=== PATIENT | male | born 1935 | race Caucasian/White ===

== ENCOUNTER 2016-03-24 16:52 | Emergency (ER) | payer MEDICARE, OTHER ==
[~2016-03-24] VITALS: Ht 185.4 cm; Wt 104.3 kg
[~2016-03-24 16:52] MED LIST: ARICEPT10 M1 PO; ASPIR-TRIN325 MG PO; ASPIRIN325 M2 PO; ATENOLOL100 M1 PO; DIPYRIDAMOLE50 MG PO; DONEPEZIL HYDRO10 M1 PO; FOSINOPRIL SODI40 MG PO; FOSINOPRIL40 MG PO; GLIPIZIDE5 M1 PO; GLUCOTROL5 MG PO; HYDR25T PO; NOVOLIN 70100 UNIT/1 SQ; NOVOLIN R100 U/ML SC; OLEPTRO ER150 MG PO; PERSANTINE50 MG PO; TENORMIN100 MG PO; ZOCOR40 MG PO
[2016-03-24 17:41] LABS: BASO % 0.2 % (0.0-1.0); EOS # 0.3 10*3/uL (0.0-0.4); EOS % 2.1 % (1.0-4.0); HEMATOCRIT 33.5 % (42.0-52.0); HEMOGLOBIN 10.9 g/dl (14.0-18.0); LYMPH # 1.3 10*3/uL (1.3-4.4); LYMPH % 10.4 % (27.0-41.0); MEAN CELL VOLUME 94.1 fl (80.0-94.0); MEAN CORPUSCULAR HGB 30.6 pg (27.0-31.0); MEAN CORPUSCULAR HGB CONC 32.5 g/dl (33.0-37.0); MEAN PLATELET VOLUME 9.7 fl (9.6-12.3); MONO # 1.2 10*3/uL (0.1-1.0); MONO % 9.7 % (3.0-9.0); NEUT # 9.3 10*3/uL (2.3-7.9); NEUT % 77.3 % (47.0-73.0); PLATELET COUNT AUTOMATED 157 10*3/uL (130-400); RED BLOOD COUNT 3.56 10*6/uL (4.50-5.90); RED CELL DISTRI WIDTH 12.2 % (0-14.5); WHITE BLOOD COUNT 12.1 10*3/uL (4.8-10.8)
[2016-03-24 17:57] LABS: POTASSIUM 4.8 mmol/L (3.5-5.1)
[2016-03-24] MEDS ORDERED: DELTASONE20 M1 PO (18:20)
[2016-03-24] MEDS ORDERED: ZITHROMAX250 MG PO (18:20)
== END 2016-03-24 18:32 | disposition home or self-care (01) ==
LOC: ED 16:52
PROVIDERS: Emergency Medicine
DX: J40 Bronchitis, not specified as acute or chronic (principal); E10.649 Type 1 diabetes mellitus with hypoglycemia without coma; Z88.0 Allergy status to penicillin; Z79.82 Long term (current) use of aspirin; Z79.899 Other long term (current) drug therapy

== ENCOUNTER 2017-02-17 13:26 | Inpatient (IN) | payer MEDICARE, OTHER ==
[~2017-02-17] VITALS: Ht 185.4 cm; Wt 98.0 kg
--- NOTE | ~2017-02-17 | CON ---
[place], [place] REPORT OF CONSULTATION NAME: ANGÉLICA GARDUNO UNIT #: [id number] ROOM: 422 DOCTOR: DARIUS HUANG MD BIRTHDATE: [birth year] DOS: ATTESTATION Again, this is attestation on Dr. Jose Maria Kasper's note. DARIUS HUANG MD CM:CONSTR:REPORT OF CONSULTATION 1011 02/25/17 1306 interface
--- NOTE | ~2017-02-17 | PR ---
[place], [place] PROGRESS NOTE NAME: ANGÉLICA GARDUNO UNIT #: [id number] ROOM: 422 DOCTOR: SAI AUSTIN MD BIRTHDATE: [birth year] DOS: 02/20/2017 REASON FOR VISIT: Atrial fibrillation and CAD. HISTORY OF PRESENT ILLNESS: The patient denies any chest pain or shortness of breath. He is feeling better. No PND, no orthopnea. No fever or chills. No nausea, vomiting, or diarrhea. RHYTHM STRIPS: Patient was in atrial flutter versus sinus rhythm. PHYSICAL EXAMINATION: VITAL SIGNS: Blood pressure 158/89, pulse 92, respirations 16. GENERAL: Alert, comfortable, in no acute distress. HEENT: Pupils are round and equal. No jaundice. NECK: Supple. No distended neck veins, no carotid bruit. CHEST: Symmetrical, nontender. LUNGS: Clear to auscultation. HEART: Mostly regular. No S3. Grade 1/6 systolic murmur. ABDOMEN: Benign, nontender. Bowel sounds normal. EXTREMITIES: Showed no edema. Distal pulses are palpable. IMPRESSION: 1. New onset atrial fibrillation, on Coumadin. 2. Coronary artery disease. 3. Hypertension. 4. Anemia. RECOMMENDATIONS: 1. Continue current medications. 2. Lexiscan stress today to rule out ischemia due to known coronary artery disease. 3. Possible discharge in the next 24 hours. 4. We will review 2D echo for LV function and valvular function. [facility]. [facility]. [place], [place] PROGRESS NOTE NAME: ANGÉLICA GARDUNO UNIT #: [id number] ROOM: 422 DOCTOR: SAI AUSTIN MD BIRTHDATE: [birth year] SAI AUSTIN MD CM:PNTRANS 0 SAI AUSTIN MD 02/22/17121 interface
--- NOTE | ~2017-02-17 | ST ---
[place], [place] EXERCISE STRESS TEST REPORT [id number] UNIT #: [id number] ROOM: 422 DOCTOR: GEOVANNA TEMPLETON,SAI BIRTHDATE: [birth year] DOS: 02/20/2017 LEXISCAN STRESS TEST REASON FOR TEST: Atrial fibrillation, coronary artery disease. PHYSICAL EXAMINATION NECK: Supple. LUNGS: Clear anteriorly. HEART: Slightly irregular. PROTOCOL: Lexiscan protocol. Maximum heart rate 100, peak blood pressure 130/50, Symptoms, patient is chest pain free. ELECTROCARDIOGRAM: Resting EKG, sinus rhythm with intermittent atrial fibrillation. Stress EKG showed no ischemia. CONCLUSION: Clinically, patient is chest pain free. EKG, no ischemia compared to baseline. POST-STRESS COMPLICATIONS: None. Patient received a total of 0.4 mg Lexiscan. SAI AUSTIN MD CM:STRESS:EXERCISE STRESS TEST REPORT [id number] SAI AUSTIN MD
--- NOTE | ~2017-02-17 | PR ---
[place], [place] PROGRESS NOTE NAME: EMILY GARDUNON UNIT #: [id number] ROOM: 422 DOCTOR: SAI AUSTIN MD BIRTHDATE: [birth year] DOS: 02/20/2017 REASON FOR VISIT: Atrial fibrillation and CAD. SUBJECTIVE: The patient is feeling better. Denies any chest pain, shortness of breath. No palpitation. No dizziness. No orthopnea. No fever and chills. REVIEW OF SYSTEMS: Review of the 8 systems negative except as mentioned above. RHYTHM STRIPS: The patient was in sinus rhythm. OBJECTIVE: VITAL SIGNS: Blood pressure 101/62, pulse 58, respiration 16. GENERAL: Alert, comfortable, in no acute distress. HEAD AND NECK: Supple. No distended neck veins. No carotid bruit. CHEST: Symmetrical, nontender. LUNGS: Clear to auscultation bilaterally. HEART: Regular rhythm. No S3. Grade 1/6 murmur. ABDOMEN: Benign, nontender. Bowel sounds normal. EXTREMITIES: No edema. Distal pulses palpable. SKIN: Warm and dry. No cyanosis. No clubbing. NEUROLOGIC: The patient is alert, oriented. No focal neurologic deficit. MEDICATIONS AND ALLERGIES: Reviewed. IMPRESSION: 1. New onset atrial fibrillation with CHADS2-VASc score of 3. 2. Coronary artery disease, status post percutaneous coronary intervention. 3. Hypertension. 4. Anemia. RECOMMENDATIONS: Continue current medications. Continue to monitor the heart rate, blood pressure and hemoglobin. Lexiscan stress test tomorrow to rule out ischemia due to his known coronary artery disease. If he is clinically stable, stress test is unremarkable, discharge in next 24-48 hours. He was on Coumadin and he will follow up with [facility] for his protime monitoring in the future. There was no family at bedside at the time of my examination. [place], [place] PROGRESS NOTE NAME: ANGÉLICA GARDUNO UNIT #: [id number] ROOM: 422 DOCTOR: SAI AUSTIN MD BIRTHDATE: [birth year] SAI AUSTIN MD CM:ABA [id number] SAI AUSTIN MD 02/20/17 1639 interface
--- NOTE | ~2017-02-17 | CON ---
[place], [place] REPORT OF CONSULTATION NAME: ANGÉLICA GARDUNO UNIT #: [id number] ROOM: 422 DOCTOR: GEOVANNA TEMPLETON,SAI BIRTHDATE: [birth year] DOS: 02/19/2017 REASON FOR CONSULTATION: Atrial fibrillation. CLINICAL HISTORY: The patient is a 81 years. The patient with history of coronary artery disease with hypertension, presented to the Emergency Room for some abnormal labs. He was found to have slightly elevated potassium and given Kayexalate. He was found to be in atrial fibrillation on EKG and was admitted to the hospital and Cardiology consult and further recommendations. Denies any chest pain or shortness of breath. No palpitation. No dizziness. No nausea, vomiting, or diarrhea. No PND. No orthopnea. No hemoptysis. No hematuria or dysuria. REVIEW OF SYSTEMS: Review of the 8 systems negative except as mentioned above, except some generalized weakness. PAST MEDICAL HISTORY: 1. Coronary artery disease, details unknown. 2. Hypertension. 3. Dyslipidemia. 4. CKD. 5. Dementia. PAST SURGICAL HISTORY: History of cardiac angioplasty, hernia repair, nasal septoplasty. SOCIAL HISTORY: Former smoker, quit long time ago. Does not use illicit drugs, does not do alcohol abuse. FAMILY HISTORY: Mother had heart disease, diabetes and at age of 60s. Father at the age of 70 from heart disease. Bother at the age of 70s from heart disease. ALLERGIES: The patient is allergic to PENICILLIN. HOME MEDICATIONS: Reviewed. PHYSICAL EXAMINATION: VITAL SIGNS: Blood pressure 103/60, pulse 62, respirations 18. GENERAL: Alert, comfortable, in no acute distress. NECK: Supple. No distended neck veins. No carotid bruit. CHEST: Symmetrical, nontender. LUNGS: Clear to auscultation bilaterally. HEART: Irregularly irregular. No S3. Grade 1/6 systolic murmur. ABDOMEN: Benign, nontender. Bowel sounds normal. EXTREMITIES: Showed no edema. Distal pulses are palpable. SKIN: Warm and dry. No cyanosis. No clubbing. NEUROLOGIC: The patient is alert, oriented. No focal neurologic deficit. RECTAL: Deferred. [place], [place] REPORT OF CONSULTATION NAME: ANGÉLICA GARDUNO UNIT #: [id number] ROOM: [facility] DOCTOR: GEOVANNA TEMPLETON,SAI BIRTHDATE: [birth year] REVIEW OF THE DIAGNOSTIC TESTS: EKG, labs reviewed. EKG showed atrial fibrillation with low voltage complexes. Second EKG showed normal sinus rhythm. His CBC, chemistry, labs reviewed. IMPRESSION: 1. Atrial fibrillation, new onset. His [id number] score is at least 3 for hypertension, coronary artery disease and age. 2. Coronary artery disease, status post percutaneous coronary intervention, details unknown. 3. Hypertension. 4. Dyslipidemia. 5. Dementia. RECOMMENDATIONS: 1. Currently blood pressure and heart rates are stable. 2. Continue his current cardiac medications ____ metoprolol, Coumadin, lisinopril, Zocor, aspirin. 3. Check 2D echo for LV function and valvular function. 4. Lexiscan stress scan on Tuesday to rule out ischemia due to his known CAD. 5. Follow with [facility] after discharge for his protime monitoring. SAI AUSTIN MD CM:CONSTR:REPORT OF CONSULTATION 1056 02/21/17 0346 interface
[~2017-02-17 13:26] MED LIST changes: +DELTASONE20 M1 PO; +ZITHROMAX250 MG PO
[2017-02-17 13:44] VITALS: BP 138/59
[2017-02-17 15:20] LABS: BASO % 0.6 % (0.0-1.0); EOS # 0.3 10*3/uL (0.0-0.4); EOS % 4.8 % (1.0-4.0); HEMATOCRIT 30.6 % (42.0-52.0); LYMPH # 1.1 10*3/uL (1.3-4.4); LYMPH % 17.4 % (27.0-41.0); MEAN CELL VOLUME 95.9 fl (80.0-94.0); MEAN CORPUSCULAR HGB 31.3 pg (27.0-31.0); MEAN CORPUSCULAR HGB CONC 32.7 g/dl (33.0-37.0); MEAN PLATELET VOLUME 9.3 fl (9.6-12.3); MONO # 0.6 10*3/uL (0.1-1.0); MONO % 9.5 % (3.0-9.0); NEUT # 4.2 10*3/uL (2.3-7.9); NEUT % 67.4 % (47.0-73.0); PLATELET COUNT AUTOMATED 173 10*3/uL (130-400); RED BLOOD COUNT 3.19 10*6/uL (4.50-5.90); RED CELL DISTRI WIDTH 12.2 % (0-14.5); WHITE BLOOD COUNT 6.2 10*3/uL (4.8-10.8)
[2017-02-17 15:34] LABS: ALBUMIN 3.4 gm/dl (3.1-4.5); CREATININE 1.83 mg/dL (0.70-1.30); POTASSIUM 5.4 mmol/L (3.5-5.1); TOTAL PROTEIN 6.6 gm/dL (6.4-8.2)
--- NOTE | 2017-02-17 16:40 | NUR ---
PATIENT RESTING COMFORTABLY NO NEEDS AT THIS TIME
[2017-02-17 19:10] VITALS: BP 150/70
--- NOTE | 2017-02-17 19:10 | NUR ---
A 81, admitted to , under the services of MAGGIE Franklin DO with a diagnosis of AFIB. Chief complaint is ELEVATED POTASSIUM. Patient arrived via stretcher from ER. Monitor applied. Initial assessment completed. Vital signs taken and recorded. MAGGIE FRANKLIN DO notified of admission to the unit. Orders received. See assessment for past medical history, medications and allergies. Patient and/or family oriented to unit. [facility] visitation policy reviewed. Clothing/patient valuable form completed. TAYLOR ABURTO
[2017-02-17] MEDS ORDERED: RENAL CAPS SOFTG1 MG PO (19:25)
[2017-02-17] MEDS ORDERED: FISH OIL 1,0001 EAC1 PO (19:26)
[2017-02-17] MEDS ORDERED: REMERON30 M1 PO (19:28)
[2017-02-17 20:00] VITALS: BP 155/52
--- NOTE | 2017-02-17 22:30 | NUR ---
TOOK PO MEDICATIONS WITHOUT DIFFICULTY. VOICES NO C/O AT THIS TIME. CALL LIGHT WITHIN REACH.
[2017-02-18] VITALS: BP 103/53
--- NOTE | 2017-02-18 04:00 | NUR ---
AWAKE IN ROOM. VOICES NO C/O AT THIS TIME. CALL LIGHT WITHIN REACH.
[2017-02-18 07:11] LABS: BASO % 0.6 % (0.0-1.0); EOS # 0.3 10*3/uL (0.0-0.4); EOS % 5.2 % (1.0-4.0); HEMATOCRIT 28.9 % (42.0-52.0); HEMOGLOBIN 9.5 g/dl (14.0-18.0); LYMPH % 15.1 % (27.0-41.0); MEAN CELL VOLUME 95.4 fl (80.0-94.0); MEAN CORPUSCULAR HGB 31.4 pg (27.0-31.0); MEAN CORPUSCULAR HGB CONC 32.9 g/dl (33.0-37.0); MONO # 0.5 10*3/uL (0.1-1.0); MONO % 8.1 % (3.0-9.0); NEUT # 4.6 10*3/uL (2.3-7.9); NEUT % 70.8 % (47.0-73.0); PLATELET COUNT AUTOMATED 158 10*3/uL (130-400); RED BLOOD COUNT 3.03 10*6/uL (4.50-5.90); RED CELL DISTRI WIDTH 12.2 % (0-14.5); WHITE BLOOD COUNT 6.6 10*3/uL (4.8-10.8)
--- NOTE | 2017-02-18 07:30 | NUR ---
PT AWAKE, ALERT, PERIODS OF CONFUSION. NO COMPLAINTS AT THIS TIME. IV FLUIDS INTACT. CALL LIGHT IN REACH, WILL MONITOR.
[2017-02-18 07:46] LABS: CREATININE 1.74 mg/dL (0.70-1.30); PHOSPHOROUS 3.7 mg/dL (2.5-4.9); POTASSIUM 4.7 mmol/L (3.5-5.1)
[2017-02-18 07:52] LABS: THYROID STIM HORMONE (HS) 1.23 uIU/ml (0.358-4.75)
[2017-02-18 08:00] VITALS: BP 120/72
[2017-02-18 08:54] LABS: VITAMIN D, 25-HYDROXY 32.9 ng/mL (30-100)
--- NOTE | 2017-02-18 09:30 | NUR ---
Slip Cover Sewer in to talk to patient. Patient states lives at home with girlfriend. There are some steps in the home. The steps are going to the basement which he states he does not do. Physician: Dr. Sole Oconnor [place]: [place], [place] Home health services: none Patient's level of ADLs: INDEPENDENT Patient has working utilities: yes DME: none Follow-up physician's appointment after d/c: will be made by hospitalist nurse director upon discharge Does patient want to access PORTAL?: no Discharge plan home. Patient lives at home with his girlfriend. He is independent in ADLs and ambulation. Patient states he will be returning home and denies any home needs. Discussed with patient about being transferred to the [facility] or if the patient wanted to stay here at [facility]. Patient states he wanted to stay here at [facility]. EMERY BORREGO
--- NOTE | 2017-02-18 10:25 | NUR ---
PHYSICAL THERAPY Nursing screen received. Chart review completed and discussed in d/c planning- patient not appropriate for PT. Thank you. Dolly Lal,PT
--- NOTE | 2017-02-18 11:47 | NUR ---
Patient resting quietly with no c/o discomfort. Respirations easy and regular. Vital signs stable. No overt distress. MARISSA HERNANDEZ
[2017-02-18 12:00] VITALS: BP 117/56
--- NOTE | 2017-02-18 14:03 | NUR ---
DR JANG NOTIFIED OF CONSULT.
[2017-02-18 16:00] VITALS: BP 133/60
[2017-02-18 20:00] VITALS: BP 148/66
[2017-02-19] VITALS: BP 109/50
[2017-02-19 06:37] LABS: BASO % 0.5 % (0.0-1.0); EOS # 0.1 10*3/uL (0.0-0.4); HEMATOCRIT 27.7 % (42.0-52.0); LYMPH # 0.7 10*3/uL (1.3-4.4); MEAN CELL VOLUME 94.5 fl (80.0-94.0); MEAN CORPUSCULAR HGB 30.7 pg (27.0-31.0); MEAN CORPUSCULAR HGB CONC 32.5 g/dl (33.0-37.0); MEAN PLATELET VOLUME 9.6 fl (9.6-12.3); MONO # 0.6 10*3/uL (0.1-1.0); NEUT % 67.3 % (47.0-73.0); PLATELET COUNT AUTOMATED 138 10*3/uL (130-400); RED BLOOD COUNT 2.93 10*6/uL (4.50-5.90); RED CELL DISTRI WIDTH 12.3 % (0-14.5); WHITE BLOOD COUNT 4.4 10*3/uL (4.8-10.8)
[2017-02-19 07:08] LABS: ALBUMIN 3.2 gm/dl (3.1-4.5); CREATININE 1.73 mg/dL (0.70-1.30); POTASSIUM 4.4 mmol/L (3.5-5.1); TOTAL PROTEIN 6.6 gm/dL (6.4-8.2)
[2017-02-19 07:12] LABS: INTERNATIONAL NORM RATIO 1.1 (2.0-3.5)
[2017-02-19 08:00] VITALS: BP 107/55
[2017-02-19 12:00] VITALS: BP 103/60
[2017-02-19 16:00] VITALS: BP 123/64
[2017-02-19 20:00] VITALS: BP 133/65
[2017-02-20] VITALS: BP 101/62
[2017-02-20 05:56] LABS: BASO % 0.6 % (0.0-1.0); EOS # 0.3 10*3/uL (0.0-0.4); EOS % 5.4 % (1.0-4.0); HEMATOCRIT 26.2 % (42.0-52.0); HEMOGLOBIN 8.5 g/dl (14.0-18.0); LYMPH # 1.2 10*3/uL (1.3-4.4); LYMPH % 24.3 % (27.0-41.0); MEAN CELL VOLUME 94.2 fl (80.0-94.0); MEAN CORPUSCULAR HGB 30.6 pg (27.0-31.0); MEAN CORPUSCULAR HGB CONC 32.4 g/dl (33.0-37.0); MEAN PLATELET VOLUME 9.9 fl (9.6-12.3); MONO # 0.7 10*3/uL (0.1-1.0); MONO % 14.9 % (3.0-9.0); NEUT # 2.7 10*3/uL (2.3-7.9); NEUT % 54.6 % (47.0-73.0); PLATELET COUNT AUTOMATED 130 10*3/uL (130-400); RED BLOOD COUNT 2.78 10*6/uL (4.50-5.90); RED CELL DISTRI WIDTH 12.1 % (0-14.5)
[2017-02-20 06:19] LABS: CREATININE 1.88 mg/dL (0.70-1.30); POTASSIUM 4.4 mmol/L (3.5-5.1)
[2017-02-20 06:27] LABS: INTERNATIONAL NORM RATIO 1.1 (2.0-3.5)
[2017-02-20 08:00] VITALS: BP 134/65
[2017-02-20 12:00] VITALS: BP 88/45
[2017-02-20 16:00] VITALS: BP 127/54
[2017-02-20 20:00] VITALS: BP 126/61
--- NOTE | 2017-02-20 22:25 | NUR ---
PRN TEMAZEPAM GIVEN FOR PT REPORT ANXIETY.
--- NOTE | 2017-02-20 23:25 | NUR ---
PRN RESTORIL EFFECTIVE, PT IS SLEEPING EASILY AROUSED.
[2017-02-21] VITALS: BP 100/60
[2017-02-21 06:06] LABS: CREATININE 1.99 mg/dL (0.70-1.30); POTASSIUM 4.1 mmol/L (3.5-5.1)
[2017-02-21 06:24] LABS: BASO % 0.5 % (0.0-1.0); EOS # 0.3 10*3/uL (0.0-0.4); EOS % 6.8 % (1.0-4.0); HEMATOCRIT 26.2 % (42.0-52.0); HEMOGLOBIN 8.6 g/dl (14.0-18.0); LYMPH # 1.3 10*3/uL (1.3-4.4); LYMPH % 29.1 % (27.0-41.0); MEAN CELL VOLUME 93.9 fl (80.0-94.0); MEAN CORPUSCULAR HGB 30.8 pg (27.0-31.0); MEAN CORPUSCULAR HGB CONC 32.8 g/dl (33.0-37.0); MEAN PLATELET VOLUME 10.3 fl (9.6-12.3); MONO # 0.5 10*3/uL (0.1-1.0); MONO % 11.3 % (3.0-9.0); NEUT # 2.3 10*3/uL (2.3-7.9); NEUT % 52.3 % (47.0-73.0); PLATELET COUNT AUTOMATED 146 10*3/uL (130-400); RED BLOOD COUNT 2.79 10*6/uL (4.50-5.90); RED CELL DISTRI WIDTH 12.1 % (0-14.5); WHITE BLOOD COUNT 4.4 10*3/uL (4.8-10.8)
[2017-02-21 06:32] LABS: INTERNATIONAL NORM RATIO 1.3 (2.0-3.5)
[2017-02-21 08:00] VITALS: BP 145/73
--- NOTE | 2017-02-21 09:00 | NUR ---
customs manager in to see patient. Patient getting ready for a stress test. No new needs or request at this time. Patient plans to return home upon discharge.
--- NOTE | 2017-02-21 10:04 | NUR ---
PT OFF FLOOR FOR [id number] TEST.
--- NOTE | 2017-02-21 10:42 | NUR ---
INFORMED SIGNED CONSENT OBTAINED FOR LEXISCAN STRESS TEST WITH DR AUSTIN. RESTING EKG AFIB-FLUTTER HR 92 BP 158/84, PULSE OX 100% LUNGS CLEAR. AAOX3. ONE MINUTE LEXISCAN PROTOCOL COMPLETED WITH PT RECEIVING LEXISCAN 0.4MG IV OVER 10 SECONDS. NO ARRHYTHMIAS OR ST CHANGES NOTED. PT DENIED ANY SYMPTOMS. LAST RECOVYER HR OF 92 BP 130/50. PT IN STABLE CONDITION AWAITING NUCLEAR IMAGES, VISITING WITH .
[2017-02-21 12:00] VITALS: BP 134/51
[2017-02-21 16:00] VITALS: BP 108/61
[2017-02-21 20:00] VITALS: BP 115/62
[2017-02-22] VITALS: BP 133/62
--- NOTE | 2017-02-22 02:00 | NUR ---
SLEEPING. RESP EASY AND NONLABORED ON ROOM AIR. NO DISTRESS NOTED. CALL LIGHT IN REACH. WILL CONTINUE TO MONITOR.
--- NOTE | 2017-02-22 07:30 | NUR ---
PT AWAKE, ALERT, ORIENTED. VSS. CALL LIGHT IN REACH, BED IN LOWEST POSITION.
[2017-02-22 07:45] VITALS: BP 110/60
--- NOTE | 2017-02-22 08:00 | NUR ---
PATIENT PLEASANT, SITTING UPRIGHT IN CHAIR. HE DENIES ANY PAIN OR SOB. BREAKFAST ORDERED, ADVISED IF HE NEEDED ANYTHING TO CALL. JANE ARRIAGA SPNJDRC
[2017-02-22 08:22] LABS: INTERNATIONAL NORM RATIO 1.5 (2.0-3.5)
--- NOTE | 2017-02-22 09:00 | NUR ---
Front Of House Manager in to see patient. at bedside. When medically stable the patient plans to be discharged home.
--- NOTE | 2017-02-22 09:55 | NUR ---
PATIENT SITTING UPRIGHT IN BEDSIDE CHAIR, NO VERBAL COMPLAINTS, NO SOB NOTED AT THIS TIME. JANE ARRIAGA [facility]
[2017-02-22] MEDS ORDERED: COUMADIN5 M2 PO (10:24)
[2017-02-22] MEDS ORDERED: LOPRESSOR25 MG PO (10:24)
--- NOTE | 2017-02-22 11:14 | NUR ---
Discharge instructions reviewed with patient/family. Patient receptive and verbalizes understanding. Follow-up care arranged. Written instructions given to patient/family. MARSISA HERNANDEZ
--- NOTE | 2017-02-22 11:25 | NUR ---
DISCHARGED INSTRUCTIONS GIVEN, VERBAL UNDERSTANDING. IV SITE D/C CATH INTACTED PT TOLERATED WELL SITE ASYMPTAMATIC. JANE ARRIAGA SPNJDRCC
== END 2017-02-22 11:25 | disposition home or self-care (01) | DRG 309 ==
LOC: ED 13:26 → 4E 17:45 → EDHOLD 17:45 → 4E 17:51
PROVIDERS: Family Medicine Adult Medicine; Internal Medicine; ADMIT Emergency Medicine
PROC: 4A02XM4 Measurement of Cardiac Total Activity, External Approach (ICD-10-PCS; principal; 2017-02-21)
PROC: 3E073KZ Introduction of Other Diagnostic Substance into Coronary Artery, Percutaneous Approach (ICD-10-PCS; principal; 2017-02-21)
DX: I48.91 Unspecified atrial fibrillation (principal); E44.1 Mild protein-calorie malnutrition; D68.69 Other thrombophilia; D72.1 Eosinophilia; E10.22 Type 1 diabetes mellitus with diabetic chronic kidney disease; N18.3 Chronic kidney disease, stage 3 (moderate); E10.65 Type 1 diabetes mellitus with hyperglycemia; E87.5 Hyperkalemia; E87.8 Other disorders of electrolyte and fluid balance, not elsewhere classified; R79.89 Other specified abnormal findings of blood chemistry; D64.9 Anemia, unspecified; D72.810 Lymphocytopenia; R00.0 Tachycardia, unspecified; F03.90 Unspecified dementia, unspecified severity, without behavioral disturbance, psychotic disturbance, mood disturbance, and anxiety; E66.3 Overweight; Z68.28 Body mass index [BMI] 28.0-28.9, adult; E78.5 Hyperlipidemia, unspecified; I25.10 Atherosclerotic heart disease of native coronary artery without angina pectoris; M47.816 Spondylosis without myelopathy or radiculopathy, lumbar region; I12.9 Hypertensive chronic kidney disease with stage 1 through stage 4 chronic kidney disease, or unspecified chronic kidney disease; Z88.0 Allergy status to penicillin; Z87.891 Personal history of nicotine dependence; Z98.61 Coronary angioplasty status; Z83.3 Family history of diabetes mellitus; Z82.49 Family history of ischemic heart disease and other diseases of the circulatory system; Z79.82 Long term (current) use of aspirin; Z79.899 Other long term (current) drug therapy

== ENCOUNTER → 2017-02-24 | Outpatient (CLI) | payer MEDICARE, OTHER ==
[~2017-02-24] MED LIST changes: +COUMADIN5 M2 PO; +FISH OIL 1,0001 EAC1 PO; +LOPRESSOR25 MG PO; +REMERON30 M1 PO; +RENAL CAPS SOFTG1 MG PO
[2017-02-24 10:05] LABS: INTERNATIONAL NORM RATIO 1.5 (2.0-3.5)
== END | disposition home or self-care (01) ==
LOC: LAB 08:48
PROVIDERS: Student in an Organized Health Care Education/Training Program
DX: I48.91 Unspecified atrial fibrillation (principal)

== ENCOUNTER → 2017-02-26 | Outpatient (CLI) | payer MEDICARE, OTHER ==
[2017-02-26 11:07] LABS: INTERNATIONAL NORM RATIO 1.7 (2.0-3.5)
== END | disposition home or self-care (01) ==
LOC: LAB 00:20
PROVIDERS: Student in an Organized Health Care Education/Training Program
DX: I48.91 Unspecified atrial fibrillation (principal)

== ENCOUNTER → 2017-02-28 | Outpatient (CLI) | payer MEDICARE, OTHER ==
[2017-02-28 10:48] LABS: INTERNATIONAL NORM RATIO 2.9 (2.0-3.5)
== END | disposition home or self-care (01) ==
LOC: LAB 02:16
PROVIDERS: Student in an Organized Health Care Education/Training Program
DX: I48.91 Unspecified atrial fibrillation (principal)

== ENCOUNTER 2018-10-12 09:53 | Inpatient (IN) | payer MEDICARE, OTHER ==
[~2018-10-12] VITALS: Ht 185.4 cm; Wt 93.0 kg
--- NOTE | ~2018-10-12 | EKG ---
[place], [place] ELECTROCARDIOGRAM REPORT NAME: ANGÉLICA GARDUNO UNIT #: [id number] ROOM: 407 DOCTOR: ROMERO DRAFT REPORT BIRTHDATE: [birth year] [facility] Test Date: 2018-10-12 Test Time: 12:57:25 Pat Name: ANGÉLICA GARDUNO Department: Room: 407 Gender: M Spanish Linguist: Mirela Judge : 1935 Requested By: MICKI PATINO DNP Order Number: [id number] Reading MD: Dewey Zelaya Measurements Intervals [place] Rate: 67 P: [place]: QRS: 36 QRSD: 106 T: 37 QT: 435 QTc: 460 Interpretive Statements Atrial fibrillation Low voltage, extremity leads No previous ECG available for comparison Electronically Signed On 10-13-2018 12:27:07 PDT by Dewey Zelaya CM:EKGRPT:ELECTROCARDIOGRAM REPORT 1257 1227 MICKI JASSO DRAFT REPORT MICKI PATINO DNP
--- NOTE | ~2018-10-12 | EKG ---
[place], [place] ELECTROCARDIOGRAM REPORT NAME: ANGÉLICA GARDUNO UNIT #: [id number] ROOM: 407 DOCTOR: ROMERO DRAFT REPORT BIRTHDATE: [birth year] [facility] Test Date: 2018-10-12 Test Time: 10:13:35 Pat Name: ANGÉLICA GARDUNO Department: Room: 407 Gender: M A P Supervisor: : 1935 Requested By: MICKI PATINO DNP Order Number: [id number] Reading MD: Dewey Zelaya Measurements Intervals [place] Rate: 69 P: [place]: QRS: 56 QRSD: 109 T: 27 QT: 431 QTc: 462 Interpretive Statements Atrial fibrillation Low voltage, extremity leads No previous ECG available for comparison Electronically Signed On 10-13-2018 12:24:21 PDT by Dewey Zelaya CM:EKGRPT:ELECTROCARDIOGRAM REPORT 1013 1224 MICKI JASSO DRAFT REPORT MICKI PATINO DNP
[~2018-10-12 09:53] MED LIST changes: -ASPIRIN325 M2 PO; +ASPIRIN81 M1 PO
[2018-10-12 09:56] VITALS: BP 131/67
[2018-10-12 10:23] LABS: BASO % 0.5 % (0.0-1.0); EOS # 0.1 10*3/uL (0.0-0.4); EOS % 1.4 % (1.0-4.0); HEMATOCRIT 27.5 % (42.0-52.0); HEMOGLOBIN 8.8 g/dl (14.0-18.0); LYMPH # 0.9 10*3/uL (1.3-4.4); LYMPH % 14.7 % (27.0-41.0); MEAN CELL VOLUME 98.6 fl (80.0-94.0); MEAN CORPUSCULAR HGB 31.5 pg (27.0-31.0); MEAN PLATELET VOLUME 9.7 fl (9.6-12.3); MONO # 0.4 10*3/uL (0.1-1.0); NEUT # 4.8 10*3/uL (2.3-7.9); NEUT % 76.2 % (47.0-73.0); PLATELET COUNT AUTOMATED 211 10*3/uL (130-400); RED BLOOD COUNT 2.79 10*6/uL (4.50-5.90); RED CELL DISTRI WIDTH 13.1 % (0-14.5); WHITE BLOOD COUNT 6.3 10*3/uL (4.8-10.8)
[2018-10-12 10:34] LABS: BILIRUBIN NEGATIVE (NEGATIVE); BLOOD NEGATIVE (NEGATIVE); CLARITY CLEAR (CLEAR); COLOR YELLOW (YELLOW); GLUCOSE NEGATIVE (NEGATIVE); KETONE NEGATIVE (NEGATIVE); LEUKO ESTERASE NEGATIVE (NEGATIVE); NITRITE NEGATIVE (NEGATIVE); PH 5.5 (5.0-9.0); SPECIFIC GRAVITY 1.015 (1.005-1.030); UROBILINOGEN 0.2 E.U./dl (0.2-1.0)
[2018-10-12 10:34] LABS: ACT PARTIAL THROMBO TIME 45.3 SECONDS (20.0-32.1); INTERNATIONAL NORM RATIO 4.3 (2.0-3.5)
[2018-10-12 10:40] LABS: ALBUMIN 3.4 gm/dl (3.1-4.5); ALKALINE PHOSPHATASE 65 U/L (45-117); BUN 47 mg/dl (7-24); CHLORIDE 107 mmol/L (98-107); CREATININE 2.18 mg/dL (0.70-1.30); LIPASE 93 U/L (73-393); POTASSIUM 4.2 mmol/L (3.5-5.1); SGOT/AST 21 IU/L (3-35); SGPT/ALT 27 U/L (12-78); SODIUM 138 mmol/L (136-145); TOTAL PROTEIN 7.3 gm/dL (6.4-8.2)
[2018-10-12 12:20] VITALS: BP 130/70
[2018-10-12 12:30] VITALS: BP 145/79
[2018-10-12] MEDS ORDERED: VITAMIN D-32000 UNI1 PO (12:56)
[2018-10-12] MEDS ORDERED: HUMULIN N100 UNIT/1 SQ (12:57)
[2018-10-12 16:00] VITALS: BP 127/60
[2018-10-12 20:00] VITALS: BP 136/63
[2018-10-13] VITALS: BP 142/70
[2018-10-13 06:28] LABS: BASO % 0.3 % (0.0-1.0); EOS # 0.1 10*3/uL (0.0-0.4); EOS % 1.4 % (1.0-4.0); HEMATOCRIT 28.4 % (42.0-52.0); HEMOGLOBIN 9.1 g/dl (14.0-18.0); LYMPH # 0.8 10*3/uL (1.3-4.4); LYMPH % 12.6 % (27.0-41.0); MEAN CELL VOLUME 97.9 fl (80.0-94.0); MEAN CORPUSCULAR HGB 31.4 pg (27.0-31.0); MEAN PLATELET VOLUME 9.9 fl (9.6-12.3); MONO # 0.4 10*3/uL (0.1-1.0); MONO % 6.6 % (3.0-9.0); NEUT % 78.9 % (47.0-73.0); PLATELET COUNT AUTOMATED 221 10*3/uL (130-400); RED CELL DISTRI WIDTH 13.2 % (0-14.5); WHITE BLOOD COUNT 6.4 10*3/uL (4.8-10.8)
[2018-10-13 06:53] LABS: ALBUMIN 3.6 gm/dl (3.1-4.5); CREATININE 1.76 mg/dL (0.70-1.30); POTASSIUM 4.1 mmol/L (3.5-5.1); TOTAL PROTEIN 7.1 gm/dL (6.4-8.2)
[2018-10-13 06:59] LABS: INTERNATIONAL NORM RATIO 3.9 (2.0-3.5)
[2018-10-13 08:00] VITALS: BP 128/74
[2018-10-13 12:00] VITALS: BP 142/64
[2018-10-13 16:00] VITALS: BP 141/80
[2018-10-13 20:00] VITALS: BP 148/76
[2018-10-14] VITALS: BP 110/53
[2018-10-14 04:00] VITALS: BP 123/59
[2018-10-14 08:00] VITALS: BP 136/74
[2018-10-14 10:55] LABS: CREATININE 1.85 mg/dL (0.70-1.30); POTASSIUM 4.2 mmol/L (3.5-5.1)
[2018-10-14 10:56] LABS: INTERNATIONAL NORM RATIO 2.6 (2.0-3.5)
[2018-10-14 12:05] VITALS: BP 112/76
[2018-10-14 16:00] VITALS: BP 110/62
[2018-10-14 18:34] LABS: BILIRUBIN NEGATIVE (NEGATIVE); BLOOD TRACE-INTACT (NEGATIVE); CLARITY CLEAR (CLEAR); COLOR YELLOW (YELLOW); GLUCOSE 1+ (NEGATIVE); KETONE NEGATIVE (NEGATIVE); LEUKO ESTERASE NEGATIVE (NEGATIVE); NITRITE NEGATIVE (NEGATIVE); PH 5.5 (5.0-9.0); SPECIFIC GRAVITY >= 1.030 (1.005-1.030); UROBILINOGEN 0.2 E.U./dl (0.2-1.0)
[2018-10-14 18:41] LABS: BACTERIA 2+; EPITHELIAL CELLS 0-2; FINE GRANULAR CAST 0-2; RBC 0-2 rbc/hpf (0-2)
[2018-10-14 20:00] VITALS: BP 110/52; BP 110/62
[2018-10-15] VITALS: BP 120/69
[2018-10-15 06:23] LABS: CREATININE 1.75 mg/dL (0.70-1.30)
[2018-10-15 06:36] LABS: BASO % 0.5 % (0.0-1.0); EOS # 0.1 10*3/uL (0.0-0.4); EOS % 2.5 % (1.0-4.0); HEMATOCRIT 25.7 % (42.0-52.0); HEMOGLOBIN 8.1 g/dl (14.0-18.0); LYMPH # 1.2 10*3/uL (1.3-4.4); MEAN CELL VOLUME 99.6 fl (80.0-94.0); MEAN CORPUSCULAR HGB 31.4 pg (27.0-31.0); MEAN CORPUSCULAR HGB CONC 31.5 g/dl (33.0-37.0); MONO # 0.5 10*3/uL (0.1-1.0); NEUT # 3.8 10*3/uL (2.3-7.9); NEUT % 67.6 % (47.0-73.0); PLATELET COUNT AUTOMATED 174 10*3/uL (130-400); RED BLOOD COUNT 2.58 10*6/uL (4.50-5.90); RED CELL DISTRI WIDTH 13.5 % (0-14.5); WHITE BLOOD COUNT 5.6 10*3/uL (4.8-10.8)
[2018-10-15 07:10] LABS: INTERNATIONAL NORM RATIO 2.5 (2.0-3.5)
[2018-10-15 12:00] VITALS: BP 98/66
[2018-10-15 16:00] VITALS: BP 120/58
[2018-10-15 20:00] VITALS: BP 113/54
[2018-10-16] VITALS: BP 116/54
[2018-10-16 06:52] LABS: BASO % 0.8 % (0.0-1.0); EOS # 0.2 10*3/uL (0.0-0.4); EOS % 4.3 % (1.0-4.0); HEMATOCRIT 24.5 % (42.0-52.0); HEMOGLOBIN 7.7 g/dl (14.0-18.0); LYMPH # 1.3 10*3/uL (1.3-4.4); LYMPH % 25.7 % (27.0-41.0); MEAN CORPUSCULAR HGB 31.4 pg (27.0-31.0); MEAN CORPUSCULAR HGB CONC 31.4 g/dl (33.0-37.0); MONO # 0.5 10*3/uL (0.1-1.0); MONO % 9.7 % (3.0-9.0); NEUT % 59.3 % (47.0-73.0); PLATELET COUNT AUTOMATED 166 10*3/uL (130-400); RED BLOOD COUNT 2.45 10*6/uL (4.50-5.90); RED CELL DISTRI WIDTH 13.6 % (0-14.5); WHITE BLOOD COUNT 5.1 10*3/uL (4.8-10.8)
[2018-10-16 07:08] LABS: CREATININE 1.75 mg/dL (0.70-1.30); POTASSIUM 4.2 mmol/L (3.5-5.1)
[2018-10-16 07:13] LABS: INTERNATIONAL NORM RATIO 2.8 (2.0-3.5)
[2018-10-16 12:00] VITALS: BP 112/57
[2018-10-16] MEDS ORDERED: NAMENDA-5 PO (14:26)
[2018-10-16] MEDS ORDERED: MIRTAZAPINE15 M2 PO (14:26)
[2018-10-16] MEDS ORDERED: XARELTO15 M1 PO (14:26)
== END 2018-10-16 15:30 | disposition home or self-care (01) | DRG 70 ==
LOC: ED 09:53 → 4E 11:55 → EDHOLD 11:55 → 4E 12:09
PROVIDERS: Internal Medicine; Nurse Practitioner Family; Student in an Organized Health Care Education/Training Program; ADMIT Internal Medicine
DX: G93.41 Metabolic encephalopathy (principal); N17.0 Acute kidney failure with tubular necrosis; E44.1 Mild protein-calorie malnutrition; F03.91 Unspecified dementia, unspecified severity, with behavioral disturbance; D68.69 Other thrombophilia; I48.2 Chronic atrial fibrillation; E86.0 Dehydration; R79.89 Other specified abnormal findings of blood chemistry; M19.012 Primary osteoarthritis, left shoulder; I12.9 Hypertensive chronic kidney disease with stage 1 through stage 4 chronic kidney disease, or unspecified chronic kidney disease; L89.151 Pressure ulcer of sacral region, stage 1; N18.3 Chronic kidney disease, stage 3 (moderate); E83.41 Hypermagnesemia; E78.5 Hyperlipidemia, unspecified; I25.10 Atherosclerotic heart disease of native coronary artery without angina pectoris; E66.3 Overweight; M47.816 Spondylosis without myelopathy or radiculopathy, lumbar region; D50.9 Iron deficiency anemia, unspecified; G89.29 Other chronic pain; M54.5 Low back pain; K59.09 Other constipation; E11.65 Type 2 diabetes mellitus with hyperglycemia; Z79.4 Long term (current) use of insulin; Z79.01 Long term (current) use of anticoagulants; Z88.0 Allergy status to penicillin; Z87.891 Personal history of nicotine dependence; Z82.49 Family history of ischemic heart disease and other diseases of the circulatory system; Z83.3 Family history of diabetes mellitus; Z80.8 Family history of malignant neoplasm of other organs or systems; Z84.89 Family history of other specified conditions; Z79.82 Long term (current) use of aspirin; Z79.899 Other long term (current) drug therapy; Z68.27 Body mass index [BMI] 27.0-27.9, adult

== ENCOUNTER 2019-09-24 15:52 | Emergency (ER) | payer OTHER, MEDICARE ==
[~2019-09-24] VITALS: Ht 187.9 cm; Wt 99.8 kg
[~2019-09-24 15:52] MED LIST changes: +HUMULIN N100 UNIT/1 SQ; +MIRTAZAPINE15 M2 PO; +NAMENDA-5 PO; +VITAMIN D-32000 UNI1 PO; +XARELTO15 M1 PO
[2019-09-24 16:56] LABS: BASO % 0.6 % (0.0-1.0); EOS # 0.2 10*3/uL (0.0-0.4); EOS % 4.2 % (1.0-4.0); HEMATOCRIT 30.2 % (42.0-52.0); LYMPH # 1.4 10*3/uL (1.3-4.4); LYMPH % 27.3 % (27.0-41.0); MEAN CELL VOLUME 95.9 fl (80.0-94.0); MEAN CORPUSCULAR HGB 30.5 pg (27.0-31.0); MEAN CORPUSCULAR HGB CONC 31.8 g/dl (33.0-37.0); MEAN PLATELET VOLUME 9.6 fl (9.6-12.3); MONO # 0.4 10*3/uL (0.1-1.0); MONO % 7.1 % (3.0-9.0); NEUT % 60.8 % (47.0-73.0); PLATELET COUNT AUTOMATED 175 10*3/uL (130-400); RED BLOOD COUNT 3.15 10*6/uL (4.50-5.90); RED CELL DISTRI WIDTH 14.3 % (0-14.5)
[2019-09-24 17:07] LABS: ACT PARTIAL THROMBO TIME 28.8 SECONDS (20.0-32.1); INTERNATIONAL NORM RATIO 1.1 (2.0-3.5)
[2019-09-24 17:11] LABS: ALBUMIN 3.5 gm/dl (3.1-4.5); CREATININE 1.77 mg/dL (0.70-1.30); POTASSIUM 4.6 mmol/L (3.5-5.1); TOTAL PROTEIN 7.8 gm/dL (6.4-8.2)
== END 2019-09-24 18:03 | disposition home or self-care (01) ==
LOC: ED 15:52
PROVIDERS: Nurse Practitioner Family
DX: Z00.00 Encounter for general adult medical examination without abnormal findings (principal); R79.1 Abnormal coagulation profile; I48.91 Unspecified atrial fibrillation; I25.10 Atherosclerotic heart disease of native coronary artery without angina pectoris; I12.9 Hypertensive chronic kidney disease with stage 1 through stage 4 chronic kidney disease, or unspecified chronic kidney disease; E11.22 Type 2 diabetes mellitus with diabetic chronic kidney disease; N18.9 Chronic kidney disease, unspecified; Z88.0 Allergy status to penicillin; Z79.82 Long term (current) use of aspirin; Z79.4 Long term (current) use of insulin; Z79.899 Other long term (current) drug therapy; Z87.891 Personal history of nicotine dependence